=== PATIENT | male | born 1985 | race African-American/Black ===

== ENCOUNTER 2021-11-26 09:30 | Emergency (ER) | payer OTHER ==
[~2021-11-26] VITALS: Ht 167.6 cm; Wt 82.0 kg
[2021-11-26 09:43] VITALS: BP 146/102
[2021-11-26] MEDS ORDERED: ACETAMINOPHEN 325MG TABLET PO ONE (11:15)
[2021-11-26] MEDS ORDERED: LIDOCAINE HCL 1% 20ML VIAL (Pyxis) INJ INFIL ONE (12:15)
[2021-11-26] MEDS ORDERED: TETANUS, DIPHTHERIA, PERTUSSIS VAC/PF 0.5ML (>10YR OLD) IM ONE (12:30)
[2021-11-26] MEDS ORDERED: IBUP-2029 MT (13:27)
[2021-11-26] MEDS ORDERED: CEPH500C2 MT (13:27)
== END 2021-11-26 13:15 | disposition home or self-care (01) ==
LOC: ER 09:30
DX: S51.811A Laceration without foreign body of right forearm, initial encounter (principal); V03.90XA Pedestrian on foot injured in collision with car, pick-up truck or van, unspecified whether traffic or nontraffic accident, initial encounter; Y93.89 Activity, other specified; Y92.488 Other paved roadways as the place of occurrence of the external cause
CPT/HCPCS: 12004; 73090; 73110; 73130; 90471; 90715; 99284; J3490